=== PATIENT | male | born 1945 | race Caucasian/White ===

== ENCOUNTER 2017-08-08 07:01 | Day surgery (SDC) | payer OTHER ==
[2017-08-08] MEDS ORDERED: TETRACAINE 0.5% OPHTH 1 DOSE AFFEYE ONE ×7 (07:15→10:45)
[2017-08-08] MEDS ORDERED: VIGAMOX 0.5% OPHTH 1 DOSE AFFEYE ONE ×5 (07:20→10:57)
[2017-08-08] MEDS ORDERED: NS 500 ML IV 500 ML IV ONE (07:23)
[2017-08-08] MEDS ORDERED: PROLENSA OPHTH 1 DOSE AFFEYE ONE (07:31)
[2017-08-08] MEDS ORDERED: ALPHAGAN-P OPHTH 1 DOSE AFFEYE ONE (07:32)
[2017-08-08] MEDS ORDERED: MYDRIACIL OPHTH 1 DOSE AFFEYE ONE ×3 (07:33→07:35)
[2017-08-08] MEDS ORDERED: AK-DILATE 2.5% OPHTH 1 DOSE OP ONE ×3 (07:33→07:35)
[2017-08-08] MEDS ORDERED: CYCLOGYL 1% OPHTH 1 DOSE OP ONE ×3 (07:33→07:35)
[2017-08-08] MEDS ORDERED: VERSED ONE (08:03)
[2017-08-08] MEDS ORDERED: VERSED IVP ONE ×2 (09:13→10:19)
[2017-08-08] MEDS ORDERED: AK-DILATE 10% OPHTH 1 DOSE AFFEYE ONE (09:14)
[2017-08-08] MEDS ORDERED: BETADINE OPHTH SOLN 5% EACHEYE ONE (10:35)
[2017-08-08] MEDS ORDERED: XYLOCAINE-MPF 1% IJ ONE ×2 (10:41→10:45)
[2017-08-08] MEDS ORDERED: ADRENALINE CHL INJ IJ ONE ×2 (10:41→10:45)
[2017-08-08] MEDS ORDERED: BSS OPHTH (PLAIN) 500 ML with VANCOMYCIN HCL 500 MG VIAL 25 MG, ADRENALINE CHL INJ 1 MG IR ONE ×6 (10:42)
[2017-08-08] MEDS ORDERED: DUOVISC IO ONE ×2 (10:42→10:45)
[2017-08-08 12:04] VITALS: BP 134/77
== END 2017-08-08 11:20 | disposition home or self-care (01) ==
LOC: SURG1 07:01
PROVIDERS: ATTEND Ophthalmology
PROC: 08RK3JZ Replacement of Left Lens with Synthetic Substitute, Percutaneous Approach (ICD-10-PCS; principal; 2017-08-08 09:45)
PROC: 08DK3ZZ Extraction of Left Lens, Percutaneous Approach (ICD-10-PCS; principal; 2017-08-08 09:45)
DX: H25.12 Age-related nuclear cataract, left eye (principal); H25.012 Cortical age-related cataract, left eye; H52.222 Regular astigmatism, left eye
CPT/HCPCS: 99100; A4217; J0170; J2250; J3370

== ENCOUNTER 2017-09-05 06:56 | Day surgery (SDC) | payer OTHER ==
[2017-09-05] MEDS ORDERED: NS 500 ML IV 500 ML IV ONE (07:06)
[2017-09-05] MEDS ORDERED: TETRACAINE 0.5% OPHTH 1 DOSE AFFEYE ONE ×5 (07:30→09:43)
[2017-09-05] MEDS ORDERED: VIGAMOX 0.5% OPHTH 1 DOSE AFFEYE ONE ×3 (07:35→07:45)
[2017-09-05] MEDS ORDERED: VERSED ONE (07:38)
[2017-09-05] MEDS ORDERED: PROLENSA OPHTH 1 DOSE AFFEYE ONE (07:46)
[2017-09-05] MEDS ORDERED: ALPHAGAN-P OPHTH 1 DOSE AFFEYE ONE (07:47)
[2017-09-05] MEDS ORDERED: CYCLOGYL 1% OPHTH 1 DOSE OP ONE ×3 (07:48→07:50)
[2017-09-05] MEDS ORDERED: MYDRIACIL OPHTH 1 DOSE AFFEYE ONE ×3 (07:48→07:50)
[2017-09-05] MEDS ORDERED: AK-DILATE 2.5% OPHTH 1 DOSE OP ONE ×3 (07:48→07:50)
[2017-09-05] MEDS ORDERED: VERSED IVP ONE (09:14)
[2017-09-05] MEDS ORDERED: AK-DILATE 10% OPHTH 1 DOSE AFFEYE ONE (09:18)
[2017-09-05] MEDS ORDERED: BETADINE OPHTH SOLN 5% EACHEYE ONE (09:30)
[2017-09-05] MEDS ORDERED: ADRENALINE CHL INJ IJ ONE (09:43)
[2017-09-05] MEDS ORDERED: DUOVISC IO ONE (09:43)
[2017-09-05] MEDS ORDERED: XYLOCAINE-MPF 1% IJ ONE (09:43)
[2017-09-05] MEDS ORDERED: VIGAMOX 0.5% AFFEYE ONE (09:51)
[2017-09-05] MEDS ORDERED: BSS OPHTH (PLAIN) 500 ML with VANCOMYCIN HCL 500 MG VIAL 25 MG, ADRENALINE CHL INJ 1 MG IR ONE ×3 (09:51)
[2017-09-05 10:18] VITALS: BP 145/80
== END 2017-09-05 10:20 | disposition home or self-care (01) ==
LOC: SURG1 06:56
PROVIDERS: ATTEND Ophthalmology
PROC: 08RJ3JZ Replacement of Right Lens with Synthetic Substitute, Percutaneous Approach (ICD-10-PCS; principal; 2017-09-05 08:15)
PROC: 08DJ3ZZ Extraction of Right Lens, Percutaneous Approach (ICD-10-PCS; principal; 2017-09-05 08:15)
DX: H25.11 Age-related nuclear cataract, right eye (principal); H25.011 Cortical age-related cataract, right eye; H52.221 Regular astigmatism, right eye
CPT/HCPCS: 99100; A4217; J0170; J2250; J3370